=== PATIENT | female | born 1980 | race Caucasian/White ===

== ENCOUNTER 2017-09-19 23:40 | Emergency (ER) ==
[2017-09-19 23:54] VITALS: BP 126/84; TEMP 98.9; BMI 36.5
--- NOTE | 2017-09-20 00:06 | ED.PDOC ---
General ED Provider: Dr. THOMAS COOPER Chief Complaint: Rash Stated Complaint: Pateint reports that she has a rash all over that started 2 days ago. The rash is not itching. She also complains of chest pain on the left breast area that started two days ago. Has had a non productive cough. Admits to smoking. Denies any fever. She was recently seen in an ER and started on antibiotics, AZO and Pyridium for uti which she has completed. She lives in [facility] and is here for work. Time Seen by Physician: 00:03 Mode of Arrival: Walk-In Information Source: Patient Exam Limitations: No limitations Referred to ED by: PCP Seen Within Last 72 Hours for Same Complaint By: ED Nursing and Triage Documentation Reviewed and Agree: Yes Reviewed sepsis parameters & appropriate labs ordered?: No System Inflammatory Response Syndrome: Pulse >90 BPM Sepsis Protocol: For patient's 13 years and over: Temp is 96.8 and below OR 101 and greater Pulse >90 BPM Resp >20/minute Acutely Altered Mental Status Are patient's symptoms suggestive of a new infection, such as: -Pneumonia -Skin, Soft Tissue -Endocarditis -UTI -Bone, Joint Infection -Implantable Device -Acute Abdominal Infection -Wound Infection -Meningitis -Blood Stream Catheter Infection -Unknown System Inflammatory Response Syndrome: Not Applicable Cardiovascular Complaint Exam - Chest Pain Complaint/Exam Onset: Sudden Duration: constant Symptoms Are: Still present Timing: Intermittent Length of Chest Pain Episodes: minutes Initial Severity: Moderate Current Severity: Moderate Location: Reports: Left anterior (breast area ) Character: Reports: Tightness Aggravating: Reports: None Associated Signs and Symptoms: Reports: Cough, Short of air History of Healthcare-Acquired Pneumonia: Reports: No AMI/ACS Risk Factors: Reports: None TAD Risk Factors: Reports: None Pulmonary Embolism Risk Factors: Reports: Smoking Recent Stress Test: No Recent Echo/LV Function: No JVD Present: No Subcutaneous Emphysema Present: No Diminshed Breath Sounds: No Reproducible Chest Wall Pain: No Bilateral Pulses Present: No Unequal Pulses Noted: No If Risk Factors for AMI/ACS Consider: EKG, Cardiac Enzymes Documents Reviewed: Labs, Imaging, EKG Eye Surgeon Consulted: No Differential Diagnoses: Acute WA, Pulmonary Edema, Chest Wall Pain Quality Indicators For Acute WA or Cardiac Chest Pain: EKG in 10min. Review of Systems - Review Of Systems Constitutional: Reports: No symptoms Eyes: Reports: No symptoms Ears, Nose, Mouth, Throat: Reports: No symptoms Respiratory: Reports: No symptoms Cardiac: Reports: Chest pain GI: Reports: No symptoms : Reports: No symptoms Musculoskeletal: Reports: No symptoms Skin: Reports: Rash Neurological: Reports: No symptoms Endocrine: Reports: No symptoms Hematologic/Lymphatic: Reports: No symptoms All Other Systems: Reviewed and Negative Past Medical History - Past Medical History Endocrine: Reports: Dyslipidemia Cardiovascular: Reports: Hypertension Respiratory: Reports: None Hematological: Reports: Anemia Gastrointestinal: Reports: GERD Genitourinary: Reports: Kidney stones Neuro/Psych: Reports: None Musculoskeletal: Reports: None Cancer: Reports: None Last Menstrual Period: 3 weeks ago - Surgical History General Surgical History: Reports: Tubal ligation (2001) - Family History Family History: Reports: Cancer (breast), Unknown (blood clot ) - Social History Smoking Status: Current every day smoker, Heavy tobacco smoker Hx Substance Use: Yes (marijuana 2-3 times a week) Alcohol Screening: None - Immunizations Tetanus Shot up to Date: Yes Physical Exam - Physical Exam Appearance: Ill-appearing Eyes: ELI, EOMI, Conjunctiva clear Neck: Supple Respiratory: Airway patent, Breath sounds clear, Breath sounds equal, Respirations nonlabored Cardiovascular: RRR, Pulses normal, No rub, No murmur GI/: Soft, Nontender, No masses, Bowel sounds normal, No Organomegaly Musculoskeletal: Normal strength, ROM intact, No edema, No calf tenderness Skin: Warm, Dry, Normal color Neurological: Alert, Oriented Psychiatric: Anxious Interpretation - Radiology Interpretation Radiology Interpretation By: ED Physician Radiology Results: Negative Exam Interpreted: Portable CXR - [place]aser Rate: Normal Rhythm: Sinus Ectopy: None - EKG Interpretation Time of EKG #1: 00:13 Rate: Normal Rhythm: Sinus Ectopy: None [place]: NL ST Segment: Normal Interpretation: Sinus Tachycardia Critical Care Note - Critical Care Note Total Time (mins): 0 Course - Course Hematology/Chemistry: 09/20/17 00:15 Orders, Labs, Meds: Lab Review 09/20/17 09/20/17 09/20/17 00:15 00:15 00:15 WBC 8.19 RBC 4.18 L Hgb 12.6 Hct 36.3 L MCV 86.8 MCH 30.1 MCHC 34.7 RDW Coeff of Gian 12.8 Plt Count 242 Immature Gran % (Auto) 0.4 Neut % (Auto) 60.1 Lymph % (Auto) 29.9 Warren % (Auto) 7.2 Eos % (Auto) 2.3 Baso % (Auto) 0.1 Immature Gran # (Auto) 0.0 Neut # (Auto) 4.9 Lymph # (Auto) 2.5 Warren # (Auto) 0.6 Eos # (Auto) 0.2 Baso # (Auto) 0.0 D-Dimer (Manual) 872.78 B-Natriuretic Peptide < 10 Orders Category Date Time Status EKG-(ED ONLY) Stat CARDIO 09/20/17 00:01 Ordered NPO REMINDER: IMAGING ONCE CARE 09/20/17 01:05 Completed ED FRUIT CULLER APPLIED .ONCE EMERGENCY 09/20/17 00:01 Active ED IV/MEDIPORT/POWERPORT .ONCE EMERGENCY 09/20/17 01:12 Active B-TYPE NATRIURETIC PEPTIDE Stat LAB 09/20/17 00:15 Completed CBC W/ AUTO DIFF Stat LAB 09/20/17 00:15 Completed COMPREHENSIVE METABOLIC PANEL Stat LAB 09/20/17 00:15 Received CREATINE KINASE Stat LAB 09/20/17 00:15 Received D-DIMER Stat LAB 09/20/17 00:15 Completed TROPONIN I Stat LAB 09/20/17 00:15 Received 0.9 % Sodium Chloride [Saline Flush] MEDS 09/20/17 01:11 Ordered 1 syr IVF PRN PRN Aspirin [Aspirin Chewable] MEDS 09/20/17 00:16 Discontinued 324 mg PO ONCE STA Methylprednisolone Sod Succ/Pf [Solu-Medrol 125 mg] MEDS 09/20/17 00:25 Discontinued 125 mg IM ONCE STA CHEST, 1V AP ONLY Stat RADS 09/20/17 00:[address] CHEST PE PROTOCOL Stat RADS 09/20/17 01:04 Ordered Medications Generic Name Dose Route Start Last Admin Trade Name Freq PRN Reason Stop Dose Admin Sodium Chloride 1 syr 09/20/17 01:11 Saline Flush IVF PRN PRN To flush IV Discontinued Medications Generic Name Dose Route Start Last Admin Trade Name Freq PRN Reason Stop Dose Admin Aspirin 324 mg 09/20/17 00:16 09/20/17 00:33 Aspirin Chewable PO 09/20/17 00:17 324 mg ONCE STA Administration Methylprednisolone Sodium Succinate 125 mg 09/20/17 00:25 09/20/17 00:33 Solu-Medrol 125 Mg IM 09/20/17 00:26 125 mg ONCE STA Administration Vital Signs: Temp Pulse Resp BP Pulse Ox 09/19/17 23:40 98.9 F 106 H 20 126/84 98 CAREY Risk Score Age >/= 65: No >/= 3 CAD Risk Factors: No Known CAD (Stenosis >/= 50%): No ASA Use in Past 7 Days: No Severe Angina (>/= 2 episodes in 24 hours): No EKG ST Changes >/= 0.5mm: No Postive Cardiac Marker: No CAREY Total Score: 0 CAREY Risk Score: Risk Score Odds of by 30D 0 0.1 (0.1-0.2) 1 0.3 (0.2-0.3) 2 0.4 (0.3-0.5) 3 0.7 (0.6-0.9) 4 1.2 (1.0-1.5) 5 2.2 (1.9-2.6) 6 3.0 (2.5-3.6) 7 4.8 (3.8-6.1) Departure - Departure Time of Disposition: 02:30 Disposition: HOME SELF-CARE Discharge Problem: Rash, Acute chest wall pain Instructions: Chest Pain (ED), Chest Wall Pain (ED) Condition: Stable Pt referred to PMD for follow-up: Yes IPMP verified?: No Additional Instructions: Take medications as prescribed Take Tylenol as needed for pain. Follow up with PCP in 3 days. Quit smoking. Prescriptions: Hydroxyzine HCl [Atarax] 25 mg PO TID PRN #25 tablet PRN Reason: Allergy Symptoms Methylprednisolone [Medrol Dosepak] 4 mg PO DIRECTED #1 pkg Allergies/Adverse Reactions: Allergies hydrocodone Adverse Reaction (Verified 09/19/17 23:51) Home Medications: Ambulatory Orders Sulfamethoxazole/Trimethoprim [Bactrim Ds 800/160 mg] 1 tab PO BID 09/19/17 Hydroxyzine HCl [Atarax] 25 mg PO TID PRN #25 tablet 09/20/17 Methylprednisolone [Medrol Dosepak] 4 mg PO DIRECTED #1 pkg 09/20/17 Disposition Discussed With: Patient
[2017-09-20] MEDS ORDERED: SOLU-MEDROL 125 MG IVP STA (00:21)
[2017-09-20] MEDS ORDERED: SOLU-MEDROL 125 MG IM STA (00:23)
[2017-09-20] MEDS: ASPIRIN CHEWABLE PO STA (00:33)
[2017-09-20] MEDS: SOLU-MEDROL 125 MG IM STA (00:33)
--- NOTE | 2017-09-20 00:33 | DI ---
EXAM: Portable chest HISTORY: Chest pain COMPARISON: None. FINDINGS: The cardiomediastinal silhouette is normal. The lungs are clear bilaterally. No osseous abnormalities are identified. IMPRESSION: No evidence of active pulmonary disease
--- NOTE | 2017-09-20 02:31 | CT ---
EXAM: CTA thorax HISTORY: Chest pain elevated D-dimer COMPARISON: None. FINDINGS: Contiguous axial images obtained through the thorax following the administration intraveno us contrast utilizing 3-mm collimation. Sagittal and coronal reconstructions were imaged and reviewe d. Source images were utilized create rotating 3-D MIP images.. The thoracic inlet is unremarkable. There are subcentimeter prevascular lymph nodes. The heart is normal in size without pericardial e ffusion.. There is no evidence of pulmonary embolus. There is dependent atelectasis both posterior gutter regions.. There is an azygos lobe.. There is a tiny hypoattenuating area within the left lob e of the liver which is too small to characterize may be cystic in nature. IMPRESSION: No evidence of pulmonary embolus.. Dependent atelectasis both lung bases.
== END 2017-09-20 02:45 | disposition home or self-care (01) ==
LOC: ED 23:40
DX: R21 Rash and other nonspecific skin eruption (principal); R07.89 Other chest pain; R05 Cough; R06.02 Shortness of breath; I10 Essential (primary) hypertension; E78.5 Hyperlipidemia, unspecified; F17.210 Nicotine dependence, cigarettes, uncomplicated
CPT/HCPCS: 36415; 80053; 82550; 82553; 83880; 84484; 85025; 85379; 93005; 93010; 96372; 99283